=== PATIENT | male | born 1965 | race Caucasian/White ===

== ENCOUNTER 2020-06-24 12:00 | Outpatient (REF) | payer OTHER, SELFPAY | END 2020-06-24 12:01 | disposition home or self-care (01) | LOC: HO.LAB 12:00 | PROVIDERS: PCP Internal Medicine; Visit Provider Internal Medicine | DX: Z20.828 Contact with and (suspected) exposure to other viral communicable diseases (principal) | CPT/HCPCS: 87635 ==

== ENCOUNTER 2021-09-09 06:46 | Emergency (ER) | payer OTHER, SELFPAY ==
--- NOTE | ~2021-09-09 | CT_ITS ---
EXAMINATION: CT ABDOMEN AND PELVIS WITH CONTRAST CLINICAL INFORMATION: Left lower quadrant abdominal pain. Question diverticulitis. COMPARISON: None TECHNIQUE: Multidetector volumetric images were obtained from the superior aspect of the liver through the pubic symphysis following administration 85 mL of Omnipaque 350 intravenous contrast. Sagittal and coronal reformatted images were obtained on the technologist's workstation. Oral contrast: No This CT examination was performed using dose optimization techniques as appropriate, variously including the following: *Automated exposure control *Adjustment of mA and/or kV according to patient size (this includes techniques or standardized protocols for targeted exams where dose is matched to indication/reason for exam; i.e. extremities or head) *Use of iterative reconstruction technique DLP: 738 mGy-cm FINDINGS: LUNG BASES: There is bibasilar dependent atelectasis and platelike atelectasis along the major fissure right lower lobe there is a small subpleural 3 mm calcified nodule likely granuloma. LIVER, GALLBLADDER, AND BILIARY TREE: The liver is normal in size, shape, and attenuation. There is a punctate 2 mm hypodensity right hepatic lobe, axial image 16/2. There is a punctate 2 mm calcification right hepatic lobe axial image 25/2. There is a 1.2 cm hypodensity right hepatic lobe axial image 37/2, likely cyst. No additional lesions seen. There is no intrahepatic ductal dilatation. The gallbladder is unremarkable with no evidence of radiopaque gallstones, gallbladder wall thickening, or obvious pericholecystic inflammatory changes. PANCREAS: Unremarkable. SPLEEN: Unremarkable. ADRENAL GLANDS: Unremarkable. KIDNEYS AND URETERS: The kidneys are normal in size, shape, and attenuation. No hydronephrosis, hydroureter, or calculi seen. No perinephric stranding. There are small hypodense lesions in the midpole of both kidneys the largest measuring 1.2 cm midpole left kidney axial image 38/2. BLADDER: Unremarkable. GASTROINTESTINAL TRACT: There is scattered stool and gas seen throughout the colon without significant distention. The small bowel loops are normal caliber. Appendix is normal caliber. ABDOMINAL WALL: No significant hernia is appreciated. LYMPH NODES: No abnormal size lymph nodes seen. VASCULAR: There is mild atherosclerotic changes of abdominal aorta without aneurysmal dilatation. PELVIC VISCERA: Lower pelvis is limited in evaluation secondary to artifact from bilateral hip prosthesis. There is no free air or free fluid. No abnormal pelvic or inguinal lymph nodes seen. There are bilateral hip prosthesis. OSSEOUS STRUCTURES: L5-S1 fusion with disc prosthesis and posterior hardware is noted. There are bilateral L4 pars defect noted CT/CT abdomen pelvis w con IMPRESSION: No acute intra-abdominal process seen. Likely right hepatic and bilateral renal cysts. Mild constipation.
[2021-09-09 07:14] VITALS: BP 142/79; PULSE 80; RESP 18; TEMP 37; O2SAT 98; BMI 31.5
--- NOTE | 2021-09-09 07:39 | ED_ITS ---
HPI - Abdominal Pain General Chief Complaint: Abdominal Pain Stated Complaint: lower abd pain x3 days Time Seen by Provider: 09/09/21 07:37 Source: patient Mode of arrival: ambulatory Limitations: no limitations History of Present Illness HPI narrative: This is a very pleasant 55 years old man presented to emergency department with a chief complaint of left lower quadrant abdominal pain x3 days. He denies any fever, chills, diarrhea. He denies any prior abdominal surgery MD elicited complaint: abdominal pain Pertinent past history: none Onset (ago): day(s) (3) Pain Consistency: constant Location: LLQ Severity: mild Quality: cramping Radiation: LLQ Migration to: no migration Exacerbating factors: nothing Relieving factors: nothing Associated symptoms: denies other symptoms Related Data Allergies Allergy/AdvReac Type Severity Reaction Status Date / Time No Known Allergies Allergy Verified 09/09/21 07:14 Review of Systems Constitutional: Denies fever(s) Denies odynophagia Respiratory: Reports no additional respiratory complaints Gastrointestinal: Denies diarrhea, Denies nausea, Denies odynophagia, Denies vomiting and Denies hematemesis Physical Exam Vital Signs: Vital Signs: Last Vital Signs Temp 98.6 F 09/09/21 07:42 Pulse 69 09/09/21 08:33 Resp 16 09/09/21 08:33 BP 141/86 H 09/09/21 08:33 Pulse Ox 97 09/09/21 08:33 BMI result Body Mass Index 31.5 Const: Other: On examination he looks well, he is not toxic-appearing, his vitals are stable General: cooperative and no acute distress Nutritional Appearance: average body habitus Orientation/consciousness: patient oriented x3 Limitations: no limitations HENMT: Head: Yes normal to inspection Face and sinus: Yes normal facial exam Mouth: Normal oral and palatal mucosa present Throat: Yes posterior oropharynx normal Neck: Neck: Yes normal visual inspection and Yes full ROM Chest: Chest palpation & inspection: normal inspection of the chest Resp: Effort & Inspection: normal respiratory effort Auscultation: clear to auscultation bilaterally Cardio: Jugular venous distension: no JVD Rate: regular rate Rhythm: regular rhythm GI: Other: There is tenderness in the left lower quadrant, no guarding and no rebound Palpation (GI): Soft to palpation, Tenderness to palpation present (GI) (Left lower quadrant), no guarding and not rigid Neuro: General: patient oriented x3 Course Reevaluation(s) Reevaluation #1: He is feeling better at this time a workup is essentially negat cleo, including labs and CT of abdomen and pelvis with IV contrast. At this time medical the patient can be discharged home a if follow-up with his PCP MDM - Abdominal Pain MDM Narrative Medical decision making narrative: We are going to get labs, will do a CT his pain is the left lower quadrant , could be diverticulitis Lab Data Result diagrams: 09/09/21 07:51 09/09/21 07:51 Labs: Lab Results 09/09/21 09/09/21 09/09/21 Range/Units 07:51 07:51 07:51 WBC 5.6 (4.8-10.8) X10*3/uL RBC 5.16 (4.60-5.80) X10*6/uL Hgb 14.7 (14.0-18.0) g/dl Hct 44.7 (42.0-52.0) % MCV 86.6 (80.0-98.0) fL MCH 28.5 (27.0-33.0) pg MCHC 32.9 (31.0-36.0) g/dl RDW 13.6 (11.0-16.0) % Plt Count 192 (160-400) X10*3/uL MPV 9.8 (9.4-12.4) fL Immature Gran % (Auto) 0.5 H (0.0-0.4) % Neut % (Auto) 52.0 (45-73) % Lymph % (Auto) 32.6 (20-40) % Walker % (Auto) 10.3 (2-11) % Eos % (Auto) 4.1 H (0-4) % Baso % (Auto) 0.5 (0-2) % Lymph # (Auto) 1.8 (1.2-4.9) X10*3/uL Walker # (Auto) 0.6 (0.1-1.2) X10*3/uL Eos # (Auto) 0.2 (0.0-0.4) X10*3/uL Baso # (Auto) 0.0 (0.0-0.2) X10*3/uL Abs Immat Gran (auto) 0.03 (0.00-0.03) X10*3/uL Absolute Neuts (auto) 2.9 (2.0-8.3) x10*3/uL Absolute Nucleated RBC 0.000 (0.0-0.012) X10*3/uL Nucleated RBC % (auto) 0.0 (0.0-0.2) /100WBC Sodium 143 (135-145) mmol/L Potassium 3.8 (3.3-5.1) mmol/L Chloride 108 (96-108) mmol/L Carbon Dioxide 29 (22-29) mmol/L Anion Gap 10 L (12-20) BUN 11 (9-16) mg/dL Creatinine 0.99 (0.5-1.4) mg/dL Estim Creat Clear Calc 102.1 Estimated GFR > 60 Random Glucose 107 (60-115) mg/dL Calcium 9.3 (8.4-10.2) mg/dL Total Bilirubin 0.4 (0.0-1.0) mg/dL AST 17 (5-37) U/L ALT 25 (0-40) U/L Alkaline Phosphatase 106 (39-117) U/L Total Protein 6.7 (6.5-8.0) g/dL Albumin 3.9 (3.5-5.0) g/dL Urine Color YELLOW Urine Appearance CLEAR Urine pH 5.5 (5.0-8.0) Ur Specific [place] 1.025 (1.005-1.025) Urine Protein NEG (NEG-TRACE) MG/DL Urine Glucose (UA) NEG (NEG) MG/DL Urine Ketones NEG (NEG) MG/DL Urine Blood NEG (NEG) Urine Nitrite NEG (NEG) Ur Leukocyte Esterase NEG (NEG) Discharge Plan Discharge Clinical Impression: Abdominal pain Patient Disposition: Home, Self-Care Instructions: Abdominal Pain (ED) Additional Instructions: And stable liquid diet for 24 hour return if you worse any concern Referrals: Lucas Pepe MD [Primary Care Provider] - 2 days [facility] Social History Social History Smoked in Last 30 Days: No Use of substances other than those prescribed or required for medical reasons: No Advance Directives: No Advance Directives Information Provided: No
[2021-09-09 07:42] VITALS: BP 144/90; PULSE 79; RESP 16; TEMP 37; O2SAT 97
[2021-09-09 07:56] LABS: MANUAL DIFF FLAG NO
[2021-09-09] MEDS: 0.9 % Sodium Chloride 1,000 ML 999 ML IV (07:56)
[2021-09-09] MEDS: Ondansetron ODT 4 MG TAB.RAPDIS SUBLINGUAL (07:56)
[2021-09-09] MEDS: Morphine Sulfate 10 MG/ML CARTRIDGE 4 MG IVPUSH (07:56)
[2021-09-09 07:57] LABS: Appearance Urine CLEAR; Color Urine YELLOW; Glucose Urine UA NEG (NEG); Leukocyte Esterase Urine NEG (NEG); Nitrite Urine NEG (NEG); PH 5.5 (5.0-8.0); Specific Gravity - Urine 1.025 (1.005-1.025); Urine Blood NEG (NEG); Urine Ketones NEG (NEG); Urine Protein NEG (NEG-TRACE)
[2021-09-09 08:10] LABS: Basophils Percent Auto 0.5 % (0-2); Eosinophils Absolute Auto 0.2 X10*3/uL (0.0-0.4); Eosinophils Percent Auto 4.1 % (0-4); Hematocrit 44.7 % (42.0-52.0); Hemoglobin 14.7 g/dl (14.0-18.0); Imm Gran Abs Auto 0.03 X10*3/uL (0.00-0.03); Imm Gran Pct Auto 0.5 % (0.0-0.4); Lymphocytes Absolute Auto 1.8 X10*3/uL (1.2-4.9); Lymphocytes Percent Auto 32.6 % (20-40); Mean Corpuscular HGB Conc 32.9 g/dl (31.0-36.0); Mean Corpuscular Hemoglobin 28.5 pg (27.0-33.0); Mean Corpuscular Volume 86.6 fL (80.0-98.0); Mean Platelet Volume 9.8 fL (9.4-12.4); Monocytes Absolute Auto 0.6 X10*3/uL (0.1-1.2); Monocytes Percent Auto 10.3 % (2-11); Neutrophils Absolute Auto 2.9 x10*3/uL (2.0-8.3); Platelet Count 192 X10*3/uL (160-400); Red Blood Count 5.16 X10*6/uL (4.60-5.80); Red Cell Distribution Width 13.6 % (11.0-16.0); White Blood Count 5.6 X10*3/uL (4.8-10.8)
[2021-09-09 08:13] LABS: Alanine Aminotransferase 25 U/L (0-40); Albumin Level 3.9 g/dL (3.5-5.0); Alkaline Phosphatase 106 U/L (39-117); Anion Gap 10 (12-20); Aspartate Amino Transferase 17 U/L (5-37); Bilirubin Total 0.4 mg/dL (0.0-1.0); Blood Urea Nitrogen 11 mg/dL (9-16); Calcium 9.3 mg/dL (8.4-10.2); Carbon Dioxide 29 mmol/L (22-29); Chloride 108 mmol/L (96-108); Creatinine Clr Calc Pharmacy 102.1; Estimated Glomerular Filt Rate > 60; Glucose Random 107 mg/dL (60-115); Potassium 3.8 mmol/L (3.3-5.1); Sodium 143 mmol/L (135-145); Total Protein 6.7 g/dL (6.5-8.0)
[2021-09-09 08:33] VITALS: BP 141/86; PULSE 69; RESP 16; O2SAT 97
[2021-09-09] MEDS: iohexoL 350 MG/ML 100 ML INFUS..BTL 85 ML IV (08:54)
== END 2021-09-09 10:18 | disposition home or self-care (01) ==
PROVIDERS: Emergency Provider Emergency Medicine; PCP Internal Medicine
DX: R10.32 Left lower quadrant pain (principal)
CPT/HCPCS: 36415; 74177; 80053; 81003; 85025; 96361; 96374; 99284; J2270; Q9967